=== PATIENT | female | born 1960 | race Caucasian/White ===

== ENCOUNTER → 2025-02-11 | Outpatient (CLI) | payer MEDICARE, MEDICAID, SELFPAY ==
--- NOTE | 2025-02-11 12:07 | MRI_ITS ---
PROCEDURE: BRAIN W/WO CONTRAST 02/11/2025 REASON FOR EXAM: ADEM VS MULTIPLE SCLEROSIS TECHNIQUE: BRAIN W/WO CONTRAST Multiplanar and multisequence images were obtained. CONTRAST: VOLUME: mL COMPARISON: none FINDINGS: No acute or hyperacute infarcts. No intracerebral or extra-axial acute hematomas. No obvious enhancing masses. Right frontal bone metallic susceptibility artifact. Right frontal cortical and subcortical area of CSF like signal with related high T2/flair signal gliosis and exvacudilatation of the overlying cortical sulci with gyral blooming signal suggestive of hemosiderin. Bilateral cerebral cortical and subcortical areas of high T2/flair signal. Bilateral cerebral periventricular and subcortical as well as basal ganglia foci and patches of high T2/FLAIR WI signal. Normal MRI signal of the cerebellar hemispheres and brain stem. Dilated ventricular system, cortical sulci and extra-axial CSF spaces. No shift of midline structures. Normal MRI appearance of the petrous temporal bones cerebellopontine angles with no definite masses. Normal MRI appearance of orbital structures, both globes, optic nerves, optic chiasm, optic tracts and optic radiations. Scanned paranasal sinuses are unremarkable. MRI/Brain W/WO Contrast IMPRESSION: No acute infarcts. No intracerebral or extra-axial hematomas. No enhancing mass es. Right frontal bone metallic susceptibility artifact. Right frontal area of encephalomalacia. Bilateral cerebral microvascular ischemic changes. Age appropriate brain involutional changes. Reading Location: [place] [id number]
== END | disposition home or self-care (01) ==
PROVIDERS: PCP Internal Medicine; Referring Provider Psychiatry & Neurology Neurology; Visit Provider Psychiatry & Neurology Neurology
DX: G35 Multiple sclerosis (principal)
CPT/HCPCS: 70553; A9575

== ENCOUNTER → 2025-02-22 | Outpatient (CLI) | payer MEDICARE, MEDICAID, SELFPAY | END | disposition home or self-care (01) | PROVIDERS: PCP Internal Medicine; Referring Provider Psychiatry & Neurology Neurology; Visit Provider Psychiatry & Neurology Neurology | DX: G40.909 Epilepsy, unspecified, not intractable, without status epilepticus (principal) | CPT/HCPCS: 95819 ==

== ENCOUNTER → 2025-02-24 | Outpatient (CLI) | payer MEDICARE, MEDICAID, SELFPAY ==
--- NOTE | 2025-02-24 15:40 | NEURO ---
NCS and/or EMG Patient Report Ordering Doctor: Markell Dudley DATE OF SERVICE: 02/24/25 Marga presents for electrodiagnostic testing of the upper limbs. She reports numbness and tingling in both hands. She has a previous history of carpal tunnel surgery. Electrodiagnostic findings: Median motor nerve demonstrates normal distal latency, amplitude and conduction velocity bilaterally. Normal ulnar motor response bilaterally, including conduction across the elbow. Normal median and ulnar F?waves. Prolonged right median sensory latency at the wrist with mildly reduced conduction velocity. Normal ulnar and radial sensory responses. Needle EMG testing was performed in the upper limbs. All muscles tested showed no evidence of denervation with normal motor unit action potentials. Electrodiagnostic assessment: This is an abnormal study. 1. Electrodiagnostic findings suggestive of a right-sided median mononeuropathy. This consistent with a mild right carpal tunnel syndrome. There is no electrodiagnostic evidence for left sided carpal tunnel syndrome. 2. No electrodiagnostic evidence for ulnar neuropathy, including cubital tunnel syndrome. 3. No electrodiagnostic evidence is noted for cervical radiculopathy. Multi Select Codes Neurology Neurology Interp Codes: 84732-75 Musc test done w/n test comp (interp) (2) and 33592-53 Nrv cndj test 13/> studies (interp)
== END | disposition home or self-care (01) ==
PROVIDERS: PCP Internal Medicine; Referring Provider Psychiatry & Neurology Neurology; Visit Provider Psychiatry & Neurology Neurology
DX: R20.2 Paresthesia of skin (principal)
CPT/HCPCS: 95886; 95913

== ENCOUNTER → 2025-03-03 | Outpatient (CLI) | payer MEDICARE, MEDICAID, SELFPAY ==
--- NOTE | 2025-03-03 14:22 | NEURO ---
NCS and/or EMG Patient Report Ordering Doctor: Markell Dudley DATE OF SERVICE: 03/03/25 Marga presents for electrodiagnostic testing of the lower limbs. She reports sharp shooting pains in the feet and numbness in the lateral aspect of both feet. Electrodiagnostic findings: Right peroneal motor nerve demonstrates normal distal latency, amplitude and conduction velocity measured at the tib anterior. Left peroneal motor nerve measured at the EDB shows normal distal latency, amplitude and conduction velocity. Tibial motor response is within normal limits bilaterally. Sensory responses are normal. Normal tibial and peroneal F?wave. H?reflex is prolonged bilaterally. Sensory responses are within normal limits. Needle EMG testing was performed the lower limbs. All muscles tested showed no evidence of denervation with normal motor unit action potentials. Electrodiagnostic impression: This is an essentially normal study of the lower limbs. There is no electrodiagnostic evidence for peripheral polyneuropathy or lumbosacral radiculopathy. Multi Select Codes Neurology Neurology Interp Codes: 22703-35 Musc test done w/n test comp (interp) (2) and 75227-55 Nrv cndj test 11-12 studies (interp)
== END | disposition home or self-care (01) ==
LOC: PSN 12:14
PROVIDERS: PCP Internal Medicine; Referring Provider Psychiatry & Neurology Neurology; Visit Provider Psychiatry & Neurology Neurology
DX: R20.2 Paresthesia of skin (principal); R20.0 Anesthesia of skin
CPT/HCPCS: 95886; 95912

== ENCOUNTER → 2025-03-08 | Outpatient (CLI) | payer MEDICARE, MEDICAID, SELFPAY ==
[2025-03-08 13:32] LABS: Hematocrit 37.2 % (37-47); Hemoglobin 11.9 g/dL (12.0-15.0); Immature Granulocytes Count 0.040 X10^3/uL (0.0-0.0); Mean Corp Hgb Conc 32.0 g/dL (32-36); Mean Corpuscular Volume 84.9 fL (81-99); Mean Platelet Vol. 11.5 fl (6.2-12.0); NRBC Flagged by Analyzer 0 % (0-5); Platelet Count 263 K/mm3 (150-450); RBC Distribution Width CV 16.9 % (11.6-14.6); RBC Distribution Width SD 51.8 fl (35.1-43.9); Red Blood Count 4.38 M/mm3 (4.2-5.4); White Blood Count 10.8 K/mm3 (4.4-11.0)
[2025-03-08 13:41] LABS: Prothrombin Time (Protime)PT. 14.4 SECONDS (11.7-14.9)
[2025-03-08 13:42] LABS: Partial Thromboplast Time 30.5 Seconds (24.1-36.2)
[2025-03-08 13:51] VITALS: BP 109/70; PULSE 76; RESP 18; TEMP 36.9; BMI 40.6
--- NOTE | 2025-03-08 14:15 | RAD_ITS ---
PROCEDURE: DX LUMBAR PUNCTURE W/IMG GUIDE 03/08/2025 REASON FOR EXAM: G35 - MULTIPLE SCLEROSIS TECHNIQUE: DX LUMBAR PUNCTURE W/IMG GUIDE The procedure as well as the benefits and possible complications including infection and bleeding were explained to the patient. Informed consent was obtained. Radiation dose, 78 seconds of fluoroscopy. 38.8 mGy. The patient was in the prone position. The overlying skin was prepped and draped in the usual sterile fashion. Following local anesthetic application, a lumbar puncture was performed at the L3-L4 level. CSF fluid was aspirated. A total of 9 cc was submitted to the lab. The patient tolerated the procedure well. COMPARISON: None FINDINGS: Successful lumbar puncture. RAD/Dx Lumbar Puncture w/IMG Guide IMPRESSION: Successful lumbar puncture. The patient tolerated the procedure well. Reading Location: [place] [id number]
[2025-03-08] MEDS: Lidocaine 2% (5ml sdv) 5 ML VIAL.MPF INFILT (14:20)
--- NOTE | 2025-03-08 14:30 | CYSPIN_PTH ---
PATIENT: MICHAEL FRANCIS LOC: [facility] U#:[id number] AGE/SX: 64/F ROOM: RE03/08/[address]: Dr. Markell Dudley MD : 1960 BED: DIS: 03/08/2025 SPEC #: [id number] RECD: 03/09/25 10:44 STATUS: DEBORAH RELisa #: [id number] CRISTINO: 03/08/25 14:[address]: Markell Dudley DEPT: CYTOLOGY RECD BY: Kiah Bocanegra ENTERED: 03/09/25 10:45 SP TYPE: CYSPIN FL OTHR DR: Dr. Gabriel Oakley, DO Tissues: Cerebrospinal Fluid Procedures: Pap Stain (control) Special Stain Group II Cytospin Fluid HEADER OPERATION: Not noted PRE-OP DIAGNOSIS: Epilepsy, unspecified, not intractable, without status epilepticus, multiple sclerosis TISSUE SUBMITTED: A- Cerebrospinal fluid for cytology DIAGNOSIS CYTOLOGY A. Cerebrospinal fluid: * No malignant cells are identified CYTOLOGY STUDY Slides are reviewed. CYTOLOGY GROSS A. Received is 1 ml of cloudy-slight pink fluid labeled with the patient's name and and designated per the requisition as Cerebrospinal fluid. Submitted for cytology and cell block preparation. Mr 03/09/2025 CPT: 13474
[2025-03-08 14:44] VITALS: BP 114/61; PULSE 64; RESP 18; O2SAT 100
[2025-03-08 14:55] LABS: Cytology, Body Fluid / CSF SEE PATHOLOGY REPORT
[2025-03-08 15:15] VITALS: BP 104/78; PULSE 64; RESP 18; O2SAT 100
[2025-03-08 16:15] LABS: Glucose Spinal Fluid 60 mg/dL (40-75); Protein Spinal Fluid 47.5 mg/dL (15.0-45.0)
[2025-03-08 16:19] LABS: Ammonia 14.8 umol/L (11-51)
[2025-03-08 16:44] LABS: AST(SGOT) 19 U/L (<=31); Alanine Aminotransfer ALT/SGPT 13 U/L (<=34); Albumin, Serum 4.2 g/dL (3.4-4.8); Alkaline Phosphatase 126 U/L (35-104); Anion Gap 13 (5-15); BUN 15 mg/dL (4-19); BUN/Creat Ratio 17.3 RATIO (10-20); Calcium,Total 9.6 mg/dL (7.6-11.0); Carbon Dioxide 25.3 mmol/L (21.0-32.0); Chloride 103 mmol/L (98-108); Cholesterol 155 mg/dL (<=200); Estimated Creatinine Clearance 71.59 ml/min (50-250); Globulin 3.3 g/dL (2.2-4.2); Glucose 92 mg/dL (70-99); Low Density Lipoprotein Calc. 63 mg/dL; Magnesium 2.0 mg/dL (1.5-2.2); Potassium 4.1 mmol/L (3.3-5.1); Triglycerides 266 mg/dL; Very Low Density Lipoprotein 53 mg/dL (5-40); Vitamin B12 514 pg/mL (180-914); cholesterol:hdl ratio screen 4.01
[2025-03-08 18:36] LABS: Appearance CSF (character) CLEAR (Clear); CSF Color COLORLESS (Colorless); Tested Tube # 3
[2025-03-08 18:37] LABS: RBC Count, Spinal Fluid 370 /mm-3 (None seen); White Count, CSF 27 /mm-3 (0 - 5)
[2025-03-08 21:08] LABS: Neutrophils,CSF 24 % (0 - 6)
[2025-03-08 21:35] LABS: Auto B Fluid Analyzer BKGD Ct COUNTS W/IN LIMITS (W/IN LIMITS)
[2025-03-08 21:36] LABS: Body Fluid QC Type(s) BF1Q
[2025-03-12 13:08] LABS: ANTINUCLEAR ANTIBODIES DIRECT Negative (Negative); Vitamin D 1,25-Dihydroxy 32.2 pg/mL (24.8-81.5)
[2025-03-13 02:07] LABS: Folate, Hemolysate Test > 620.0 ng/mL (Not Estab.); Folate, RBC (Hct) Test 38.4 % (34.0-46.6); Folates, RBC Test > 1615 ng/mL (>498); KEPPRA (LEVETIRACETAM) 29.4 ug/mL (10.0-40.0); Vitamin B1, Thiamine 132.5 nmol/L (66.5-200.0)
== END | disposition home or self-care (01) ==
LOC: RAD 15:17 → LAB 15:28
PROVIDERS: Radiology Diagnostic Radiology; PCP Internal Medicine; Referring Provider Psychiatry & Neurology Neurology; Visit Provider Psychiatry & Neurology Neurology
DX: Z01.812 Encounter for preprocedural laboratory examination (principal); G35 Multiple sclerosis; G40.909 Epilepsy, unspecified, not intractable, without status epilepticus; E78.5 Hyperlipidemia, unspecified
CPT/HCPCS: 36415; 62328; 80053; 80061; 80177; 82040; 82042; 82140; 82542; 82607; 82652; 82747; 82784; 82945; 83735; 83873; 84157; 84425; 84439; 84443; 85014; 85025; 85610; 85730; 86038; 86225; 86592; 87015; 87070; 87101; 87116; 87205; 87206; 87496; 87529; 87798; 88108; 88313; 89050; 89051